=== PATIENT | male | born 1940 | race Caucasian/White ===

== ENCOUNTER 2022-03-24 10:16 | Outpatient (CLI) | payer MEDICARE, OTHER | END 2022-03-24 10:17 | disposition home or self-care (01) | LOC: MADRAD 10:16 | PROVIDERS: ATTEND Nurse Practitioner Family | DX: M54.41 Lumbago with sciatica, right side (principal); M47.816 Spondylosis without myelopathy or radiculopathy, lumbar region | CPT/HCPCS: 72100 ==